=== PATIENT | female | born 1960 | race Caucasian/White ===

== ENCOUNTER 2021-06-01 08:00 | Outpatient (CLI) | payer MEDICAID ==
--- NOTE | 2021-06-02 08:51 | XRAY Report ---
PROCEDURE: Knee 2 View RT INDICATIONS: SPRAIN OF R KNEE TECHNIQUE: 2 views of the right knee(s) were acquired. COMPARISON: None. FINDINGS: BONES/JOINT: No acute, displaced fracture or dislocation. Small suprapatellar joint effusion. The gino nt spaces are maintained. SOFT TISSUES: No significant abnormality. IMPRESSION: 1.No acute osseous abnormality. Reviewed by: Yehuda Zavala MD on 06/02/2021 8:50 AM PDT Approved by: Yehuda Zavala MD on 06/02/2021 8:50 AM PDT Station ID: [id number]
== END 2021-06-01 23:59 | disposition home or self-care (01) ==
LOC: DI.N 08:00
PROVIDERS: ATTEND Nurse Practitioner
DX: S83.91XA Sprain of unspecified site of right knee, initial encounter (principal)